=== PATIENT | female | born 2000 | race Caucasian/White ===

== ENCOUNTER 2019-08-22 11:07 | Emergency (ER) | payer SELFPAY ==
[~2019-08-22] VITALS: Ht 165.1 cm; Wt 102.7 kg
[2019-08-22 11:16] VITALS: Ht 165.1 cm; Wt 102.7 kg
[2019-08-22 12:55] LABS: HCG URINE NEGATIVE (NEGATIVE)
[2019-08-22 13:00] LABS: APPEARANCE CLEAR (CLEAR); COLOR YELLOW (YELLOW); GLUCOSE NEGATIVE (NEGATIVE); KETONE NEGATIVE (NEGATIVE); NITRITE POSITIVE (NEGATIVE); PROTEIN NEGATIVE (NEGATIVE); SPECIFIC GRAVITY 1.005 (1.005-1.020)
[2019-08-22 13:01] LABS: BACTERIA MANY /hpf (NEGATIVE); BILIRUBIN NEGATIVE (NEGATIVE)
[2019-08-22] MEDS ORDERED: MACROBID100 MG PO (13:19)
[2019-08-22 13:32] VITALS: BP 126/74
== END 2019-08-22 13:33 | disposition home or self-care (01) ==
LOC: D.ER 11:07
PROVIDERS: Emergency Medicine
DX: N30.90 Cystitis, unspecified without hematuria (principal)